=== PATIENT | female | born 1960 | race American Indian/Alaskan Native ===

== ENCOUNTER 2017-04-08 06:34 | Day surgery (SDC) | payer MEDICAID ==
[2013-10-17 10:49] VITALS: BMI 35.2
[2017-04-08] MEDS ORDERED: Lactated Ringer's 1,000 ML IV ONE ×2 (09:33)
[2017-04-08] MEDS ORDERED: Lidocaine Hydrochloride 5 ML INJ ONE (09:39)
[2017-04-08] MEDS ORDERED: Propofol 10 mg/ml Inj (20 ML) ONE (09:39)
[2017-04-08] MEDS ORDERED: EPINEPHrine 1 mg/ml (1:1000) Inj ONE (09:48)
[2017-04-08] MEDS ORDERED: Midazolam 2 MG/2 ML VIAL ONE (09:48)
--- NOTE | 2017-04-08 09:49 | CP.SDSHP ---
Same Day Surgery H & P - History Proposed Procedure: EGD with biopsy Pre-Op Diagnosis: Abdominal pain - Previous Medical/Surgical History Cardiac: Hypertension Comments: Gallstones Previous Surgical History: None - Allergies Allergies: Allergies No Known Allergies Allergy (Verified 04/08/17 07:20) - Current Medications Current Medications: reviewed, per reconciliation - Physical Exam General Appearance: wdwn nad Vital Signs: Vital Signs 04/08/17 07:00 Temperature 97 F L Pulse Rate 67 Respiratory 18 Rate Blood Pressure 117/76 O2 Sat by Pulse 98 Oximetry Mental Status: Alert & Oriented x3 Heart: WNL Lungs: WNL GI: WNL - {Optional Preform as Required} Abdomen: WNL - Impression Impression: Abdominal pain Pt. Evaluated Today:Candidate for Anesthesia & Procedure: Yes - Date & Time Date: 04/08/17 Time: 09:49 Short Stay Discharge - Short Stay Discharge Admitting Diagnosis/Reason for Visit: ABDOMINAL PAIN Disposition: HOME/ ROUTINE
[2017-04-08 09:55] VITALS: O2SAT 100
[2017-04-08 10:22] VITALS: TEMP 97.6
[2017-04-08 11:53] VITALS: BP 131/82; PULSE 59; RESP 15
== END 2017-04-08 11:15 | disposition home or self-care (01) ==
LOC: C.ENDO 06:34
PROVIDERS: ATTEND Internal Medicine Gastroenterology
DX: K29.80 Duodenitis without bleeding (principal); K29.70 Gastritis, unspecified, without bleeding
CPT/HCPCS: 43239; 88305; 88312; 88342; J0171; J2250; J2704; J7120